=== PATIENT | female | born 1970 | race Caucasian/White ===

== ENCOUNTER 2016-11-02 12:16 | Emergency (ER) | payer BC, OTHER ==
[2016-11-02 12:34] VITALS: TEMP 98.2; BMI 33.5
--- NOTE | 2016-11-02 12:36 | PDOC ---
History of Present Illness - History of Present Illness Initial Comments: 11/02/16 13:06 The patient is a 46 year old female with a past medical hx of asthma, diabetes and HTN who presents to the ED via EMS complaining of chest pain since this afternoon. The patient states she was watching her grandson when she started to have a left sided headache, dizziness, and began to vomit. She then sat down and she states she believes she then lost consciousness very briefly. The patient notes her grandson was calling her name and she then woke up. She reports she started to have left sided chest pain radiating into her left arm and down her back. She describes her chest pain as strong. The patient denies SOB, diaphoresis The patient denies diarrhea, fever, chills Surgical: Appendectomy, cholecystectomy <Amanda Eaton - Last Filed: 11/02/16 16:57> <João Ace - Last Filed: 11/02/16 17:40> - General Chief Complaint: Chest Pain Stated Complaint: CHEST PAIN Time Seen by Provider: 11/02/16 12:35 Past History <Amanda Eaton - Last Filed: 11/02/16 16:57> - Past Medical History Asthma: Yes Diabetes: Yes (PRE-DIABETIC) HTN: Yes - Psycho/Social/Smoking Cessation Hx Suicidal Ideation: No Smoking History: Never smoked Have you smoked in the past 12 months: No Number of Cigarettes Smoked Daily: 10 Information on smoking cessation initiated: No Hx Alcohol Use: No Drug/Substance Use Hx: No <João Ace - Last Filed: 11/02/16 17:40> - Past Medical History Allergies/Adverse Reactions: Allergies Allergy/AdvReac Type Severity Reaction Status Date / Time Penicillins Allergy Swelling Verified 11/02/16 12:32 Home Medications: Ambulatory Orders Aspirin [ASA -] 81 mg PO DAILY 11/02/16 Dicyclomine HCl [Bentyl -] 20 mg PO Q8H #21 tablet 11/02/16 Lisinopril/Hydrochlorothiazide [Lisinopril-Hctz 20-25 mg Tab] 1 each PO DAILY Ondansetron [Zofran *Odt*] 8 mg SL TID #30 od.tablet 11/02/16 Polyethylene Glycol 3350 [Miralax (For Bowel Prep) -] 17 gm PO DAILY #1 bottle 11/02/16 Review of Systems - Review of Systems Able to Perform ROS?: Yes Comments:: 11/02/16 13:07 GENERAL/CONSTITUTIONAL: No fever or chills. No weakness. No diaphoresis. HEAD, EYES, EARS, NOSE AND THROAT: No change in vision. No ear pain or discharge. No sore throat. CARDIOVASCULAR: +Chest pain. No shortness of breath. RESPIRATORY: No cough, wheezing, or hemoptysis. GASTROINTESTINAL: +Vomiting. No diarrhea or constipation. GENITOURINARY: No dysuria, frequency, or change in urination. MUSCULOSKELETAL: +Left arm pain, back pain. No joint or muscle swelling or pain. No neck pain. SKIN: No rash NEUROLOGIC: +Headache, dizziness, LOC. No change in strength/sensation. ENDOCRINE: No increased thirst. No abnormal weight change. HEMATOLOGIC/LYMPHATIC: No anemia, easy bleeding, or history of blood clots. ALLERGIC/IMMUNOLOGIC: No hives or skin allergy. <Amanda Eaton - Last Filed: 11/02/16 16:57> *Physical Exam - Vital Signs Last Vital Signs Temp Pulse Resp BP Pulse Ox 98.2 F 73 19 123/82 100 11/02/16 12:32 11/02/16 12:32 11/02/16 12:32 11/02/16 12:32 11/02/16 12:32 - Physical Exam Comments: 11/02/16 14:26 GENERAL: Awake, alert, and fully oriented, in no acute distress HEAD: No signs of trauma EYES: PERRLA, EOMI, sclera anicteric, conjunctiva clear ENT: Auricles normal inspection, hearing grossly normal, nares patent, oropharynx clear without exudates. Moist mucosa NECK: Normal ROM, supple, no lymphadenopathy, JVD, or masses LUNGS: Breath sounds equal, clear to auscultation bilaterally. No wheezes, and no crackles HEART: Regular rate and rhythm, normal S1 and S2, no murmurs, rubs or gallops ABDOMEN: Soft, nontender, normoactive bowel sounds. No guarding, no rebound. No masses MUSCULOSKELETAL: +Left CVA tenderness EXTREMITIES: Normal range of motion, no edema. No clubbing or cyanosis. No cords, erythema, or tenderness NEUROLOGICAL: Cranial nerves II through XII grossly intact. Normal speech, normal gait SKIN: Warm, Dry, normal turgor, no rashes or lesions noted. <Amanda Eaton - Last Filed: 11/02/16 16:57> - Vital Signs Last Vital Signs Temp Pulse Resp BP Pulse Ox 98.2 F 73 19 123/82 100 11/02/16 12:32 11/02/16 12:32 11/02/16 12:32 11/02/16 12:32 11/02/16 12:32 <João Ace - Last Filed: 11/02/16 17:40> Heart Score/ECG Review - ECG Impressions Comment:: 11/02/16 13:[address] Ace NSR at a rate of 68 bpm Normal rate Normal axis Normal EKG <Amanda Eaton - Last Filed: 11/02/16 16:57> ED Treatment Course - LABORATORY CBC & Chemistry Diagram: 11/02/16 13:00 11/02/16 13:00 - RADIOLOGY Radiograph Interpretation: 11/02/16 16:58 RAD/CHEST - PA Left upper quadrant and epigastric pain. Chest x ray A PA view of the chest was obtained. The cardiac silhouette is within normal limits in size. The lung is clear. Mediastinum and visualized osseous structures appear intact . Impression: Unremarkable examination. Abdomen x ray Two views of the abdomen , supine and upright were obtained. The bowel gas pattern is nonobstructive. No gross organomegaly or free air is seen. Moderate amount of fecal residue in the colon suggestive of constipation. Postcholecystectomy surgical metallic clips are present in the right upper abdomen. Minimal dextroscoliosis of the lumbar spine. Visualized osseous structures appear intact. Impression: Nonobstructive bowel gas pattern. Rule out constipation. Reported By: Rita Dee MD 11/02/16 1640 <Amanda Eaton - Last Filed: 11/02/16 16:57> - LABORATORY CBC & Chemistry Diagram: 11/02/16 13:00 11/02/16 13:00 <João Ace - Last Filed: 11/02/16 17:40> Medical Decision Making - Medical Decision Making 11/02/16 15:10 The patient is a 46 year old female with a past medical hx of asthma, diabetes and HTN who presents to the ED via EMS complaining of chest pain since this afternoon. The patient states she was watching her grandson when she started to have a left sided headache, dizziness, and began to vomit. She believes she lost consciousness briefly. The patient reports she then began to have chest pain. She describes the pain as left sided radiating into her left arm and back. The plan is to order EKG, labs, CXR <Amanda Eaton - Last Filed: 11/02/16 16:57> *DC/Admit/Observation/Transfer - Attestations Scribe Attestion: 11/02/16 13:06 Documentation prepared by Amanda Eaton, acting as chief medical technologist for João Ace MD/. <Amanda Eaton - Last Filed: 11/02/16 16:57> - Discharge Dispostion Admit: No - Attestations Physician Attestion: 11/02/16 12:36 I, Dr. João Ace, attest that this document has been prepared under my direction and personally reviewed by me in its entirety. I further attest, that it accurately reflects all work, treatment, procedures and medical decision -making performed by me. <João Ace - Last Filed: 11/02/16 17:40> Diagnosis at time of Disposition: Atypical chest pain, Gastroenteritis Constipation Qualifiers: Constipation type: unspecified constipation type Qualified Code(s): K59.00 - Constipation, unspecified - Discharge Dispostion Disposition: HOME Condition at time of disposition: Improved - Prescriptions Prescriptions: Dicyclomine HCl [Bentyl -] 20 mg PO Q8H #21 tablet Polyethylene Glycol 3350 [Miralax (For Bowel Prep) -] 17 gm PO DAILY #1 bottle Ondansetron [Zofran *Odt*] 8 mg SL TID #30 od.tablet - Referrals Referrals: Hair Franklin MD [Primary Care Provider] - - Patient Instructions Printed Discharge Instructions: DI for Atypical Chest Pain Additional Instructions: Ana- I am sorry that you are so uncomfortable. Rest, Plenty of Fluids, Return to us if worse or new symptoms occur. Follow up with your doctor in a day or two. Best- Dr. João Ace
[2016-11-02] MEDS ORDERED: SODIUM CHLORIDE 1,000 ML IV STA (12:56)
[2016-11-02] MEDS ORDERED: ONDANSETRON 4 MG/2 ML VIAL IVPB ONE (12:56)
[2016-11-02] MEDS ORDERED: KETOROLAC TROMETHAMINE 30 MG/1 ML VIAL IVPUSH ONE (13:03)
[2016-11-02] MEDS ORDERED: KETOROLAC TROMETHAMINE 30 MG/1 ML VIAL ONE (13:07)
[2016-11-02] MEDS ORDERED: ONDANSETRON 4 MG/2 ML VIAL ONE (13:07)
[2016-11-02 13:15] LABS: BASOPHIL 0.2 % (0-2.0); EOSINOPHIL 3.5 % (0-4.5); MCH 29.2 pg (25.7-33.7); MEAN CELL VOLUME 85.9 fl (80-96); MEAN PLT VOLUME 8.1 fl (7.5-11.1); NEUTROPHILS 54.9 % (42.8-82.8); PLATELET COUNT 284 K/MM3 (134-434); RDW 13.1 % (11.6-15.6); WHITE BLOOD COUNT 5.7 K/mm3 (4.0-10.0)
[2016-11-02 13:26] LABS: URINE APPEARANCE CLEAR; URINE BILIRUBIN NEGATIVE (NEGATIVE); URINE COLOR YELLOW; URINE GLUCOSE (UA) NEGATIVE (NEGATIVE); URINE KETONE NEGATIVE (NEGATIVE); URINE LEUK ESTERASE NEGATIVE (NEGATIVE); URINE NITRITE NEGATIVE (NEGATIVE); URINE PROTEIN NEGATIVE (NEGATIVE); URINE UROBILINOGEN NEGATIVE E.U./dl (0.2-1.0)
[2016-11-02 13:27] LABS: URINE BLOOD 1+ (NEGATIVE)
[2016-11-02 13:29] LABS: URINE MUCUS RARE; URINE RBC 1 /hpf (0-3)
[2016-11-02 13:41] LABS: ALBUMIN 3.6 g/dl (3.4-5.0); ANION GAP 9 (8-16); BILIRUBIN,TOTAL 0.2 mg/dL (0.2-1.0); CALCIUM 9.5 mg/dL (8.5-10.1); CO2 27 mmol/L (21-32); CREATININE 0.7 mg/dL (0.55-1.02); GLUCOSE,RANDOM 110 mg/dL (74-106); SGOT/AST 18 U/L (15-37); SGPT/ALT 24 U/L (12-78); TOT PROT 6.7 g/dl (6.4-8.2)
[2016-11-02 13:42] LABS: ALK PHOS 99 U/L (45-117)
[2016-11-02 14:00] LABS: CPK(DFH) 287 IU/L (26-140)
[2016-11-02 14:02] LABS: CK MB 1.373 ng/ml (0.3-4.0); TROPONIN I (DFP) < 0.03 ng/ml (0.03-0.50)
--- NOTE | 2016-11-02 16:21 | EKG ---
Test Reason : Blood Pressure : / mmHG Vent. Rate : 068 BPM Atrial Rate : 068 BPM P-R Int : 178 ms QRS Dur : 086 ms QT Int : 368 ms P-R-T Axes : 035 028 035 degrees QTc Int : 391 ms NORMAL SINUS RHYTHM NORMAL ECG WHEN COMPARED WITH ECG OF 06-AUG-2015 16:02, NO SIGNIFICANT CHANGE WAS FOUND Confirmed by ROJAS HERRERA MD ([id number]) on 11/02/2016 4:20:44 PM Referred By: Confirmed By:ROJAS HERRERA MD
[2016-11-02] MEDS ORDERED: HYDROmorphone HCL CARPU-JECT 1 MG/1 ML DISP.SYRIN IVPUSH ONE (16:54)
[2016-11-02] MEDS ORDERED: ONDANSETRON 4 MG/2 ML VIAL IVPUSH ONE (16:54)
[2016-11-02 16:56] VITALS: BP 102/73; PULSE 66
[2016-11-02] MEDS ORDERED: METOCLOPRAMIDE HCL INJECTION 10 MG/2 ML VIAL IVPUSH ONE (16:57)
[2016-11-02] MEDS ORDERED: METOCLOPRAMIDE HCL INJECTION 10 MG/2 ML VIAL ONE (16:58)
[2016-11-02] MEDS ORDERED: SODIUM PHOSPHATE/NA BIPHOS 133 ML ENEMA PR ONE (17:39)
== END 2016-11-02 17:49 | disposition home or self-care (01) ==
LOC: JER 12:16
PROC: 3E0333Z Introduction of Anti-inflammatory into Peripheral Vein, Percutaneous Approach (ICD-10-PCS; principal; 2016-11-02)
PROC: 3E033GC Introduction of Other Therapeutic Substance into Peripheral Vein, Percutaneous Approach (ICD-10-PCS; 2016-11-02)
PROC: 3E0337Z Introduction of Electrolytic and Water Balance Substance into Peripheral Vein, Percutaneous Approach (ICD-10-PCS; 2016-11-02)
DX: R07.89 Other chest pain (principal); K52.9 Noninfective gastroenteritis and colitis, unspecified; K59.00 Constipation, unspecified; J45.909 Unspecified asthma, uncomplicated; E11.9 Type 2 diabetes mellitus without complications; I10 Essential (primary) hypertension
CPT/HCPCS: 36415; 71010-TC; 74020-TC; 80053; 81003; 81015; 82550; 82553; 83690; 84484; 85025; 86850; 86900; 86901; 93005; 93010; 99284-25